=== PATIENT | female | born 1940 | race Caucasian/White ===

== ENCOUNTER → 2018-07-30 | Outpatient (CLI) | payer MEDICARE ==
[~2018-07-30] MED LIST: ALLOPURINOL100 MG PO; ASPIRIN81 MG PO; CYMBALTA; DIOVAN PO; GABAPENTIN100 MG PO; HYDROCODON-ACE1 EA12 PO; KLOR-CON M2020 MEQ PO; LASIX20 MG; LEVOTHYROXINE200 MCG PO; LOSARTAN POTAS100 MG PO; METFORMIN HCL500 MG PO; NAPROXEN500 MG PO; PRAVASTATIN SOD20 MG PO; SYNTHROID PO; TORSEMIDE PO; TYLENOL PO; ULTRAM 50MG50 MG PO; [UNRECOGNIZED DRUG - OTHER]
--- NOTE | 2018-07-30 14:28 | Diagnostic Imaging Report ---
Exam: Right hand radiographs-3 views History: Right hand pain. Comparison: None. Findings: No evidence of acute fracture, malalignment, or soft tissue abnormality. There are moderate degenerative changes at the first carpometacarpal joint and scattered mild interphalangeal and radiocarpal joint degenerative changes. Impression: No acute radiographic abnormality. 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 Signed by: Dr. Destiney Cooper MD on 07/30/2018 2:24 PM
== END ==
LOC: RAD 13:33
PROVIDERS: ATTEND Internal Medicine
DX: M79.641 Pain in right hand (principal)

== ENCOUNTER → 2018-08-26 | Outpatient (CLI) | payer MEDICARE ==
[~2018-08-26] MED LIST changes: +ATORVASTATIN CA20 MG PO; +FUROSEMIDE40 MG PO; +LEVOTHYROXINE50 MCG PO; +TELMISARTAN PO; +TYLENOL WITH C1 EACH PO
--- NOTE | 2018-09-10 16:28 | Polysomnography ---
DATE OF STUDY: 08/26/2018 REFERRING PHYSICIAN: Hugo Fernandez MD INTERPRETING PHYSICIAN: Carlo Segundo MD. INTERPRETATION of HOME SLEEP STUDY IMPRESSION: 1. Moderate obstructive sleep apnea with arterial oxygen desaturations with apnea-hypopnea index (AHI of 25.2). 2. Moderate snoring was noted. 3. 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 RECOMMENDATIONS: 1. Initiate titration for continuous positive airway pressure therapy (CPAP). 2. ENT evaluation to consider surgical options to correct sleep-disordered breathing. 3. Avoid consumption of alcohol or sedatives before bedtime. 4. Avoid caffeine and exercise within 3-4 hours prior to bedtime. 5. Weight reduction to ideal body weight. 6. Advise the patient that excessive daytime sleepiness could pose a danger to the patient and others while driving or operating heavy machinery and to use caution until symptoms are treated and improved. 7. Patient to follow up with physician to discuss results of study. Carlo Segundo MD JKY/MODL /[id number] MTDD
== END ==
LOC: SLEEP 19:46
PROVIDERS: ATTEND Internal Medicine
DX: G47.30 Sleep apnea, unspecified (principal)
CPT/HCPCS: 95806

== ENCOUNTER → 2018-09-17 | Day surgery (SDC) | payer MEDICARE ==
[2018-09-16 14:43] LABS: BASOPHILS % 0.3 % (0.0-1.0); EOSINOPHILS # (AUTO) 0.1 (0.0-0.4); HEMATOCRIT 37.7 % (34.2-44.1); HEMOGLOBIN 12.4 g/dL (12.0-16.0); LYMPHOCYTES # (AUTO) 1.9 (1.0-3.2); LYMPHOCYTES % 32.8 % (18.0-39.1); MEAN CORPUSCULAR HEMOGLOBIN 31.1 pg (28-32); MEAN CORPUSCULAR HGB CONC 32.9 g/dL (31-35); MEAN CORPUSCULAR VOLUME 94.5 fL (81-99); MONOCYTES # (AUTO) 0.5 (0.2-0.8); MONOCYTES % 8.8 % (4.4-11.3); NEUTROPHILS # (AUTO) 3.3 (2.1-6.9); NEUTROPHILS % 55.8 % (38.7-80.0); PLATELET COUNT 193 x10e3/uL (140-360); RED BLOOD COUNT 3.99 x10e6/uL (3.6-5.1)
[~2018-09-17] MED LIST changes: +HYALURONIDASE 16 MG/2 ML SYR IU ONE; +IOPAMIDOL 200 MG/ML 20 ML VIAL IT ONE; +LIDOCAINE HCL 1% 30ML-PF VIAL ONE; +LIDOCAINE HCL 2% LOCAL INJ 5 ML SDV VIAL INJ ONE; +MIDAZOLAM HCL 2 MG/2 ML VIAL ONE; +PROPOFOL IV EMULSION 10 MG/ML 20 ML VIAL ONE; +TRIAMCINOLONE ACET 40 MG/ML VIAL ONE
--- OUTSIDE RECORDS SUMMARY | 2018-09-17 06:56 | XMS REPORT ---
Author Author [facility] Address Unknown Phone Unavailable Care Team Providers Care Metalworker Name Role Phone CONSUELO NEWELL Unavailable Unavailable Problems This patient has no known problems. Allergies, Adverse Reactions, Alerts This patient has no known allergies or adverse reactions. Medications This patient has no known medications. Results Test Description Test Time Test Comments Text Results Atomic Results Result Comments SCR MAMM BILATERAL DEIDRA CAD DIGITAL 2018-09-03 13:09:20 - SCR MAMM BILATERAL DEIDRA CAD DIGITALBILATERAL DIGITAL SCREENING MAMMOGRAM 3D/2D WITH CAD: 09/03/2018CLINICAL: Asymptomatic. Digital breast tomosynthesis was performed in addition to routine CC and MLO views. Current mammographic images were evaluated by either a readfy M-Vu or a GeeYee ImageChecker CAD (computer aided detection system). Comparison is made to exams dated 08/25/2017 mammogram, 2016 mammogram, 11/08/2014 mammogram, and 08/17/2013 mammogram - [facility]. There are scattered fibroglandular tissues in both breasts. No suspicious mass, architectural distortion, malignant type calcification, or lymph node abnormality detected. Breast architecture is stable compared to prior exams.IMPRESSION: NEGATIVEThere is no mammographic evidence of malignancy. Resume annual screening mammography in one year. Mark Hermosillo M.D. ss/penrad:09/03/2018 13:09:20 [employer] Developer: Shabnam COLEMAN, [facility] sent: BIRADS 1-2 Normal Mammogram BI-RADS: 1 Negative HAND 3+ VIEWS RIGHT 2018-07-30 14:22:00 [place] [id number] Patient Name: FRANCESCO GARCIA MR #: [id number] : 1940 Age/Sex: 78/F Req #: [id number] [facility] Physician: Ordered by: CONSUELO NEWELL MD Report #: [id number] Location: [facility] Room/Bed: Procedure: [id number] DX/HAND 3+ VIEWS RIGHT Exam Date: 07/30/18 Exam Time: 1352 REPORT STATUS: Signed Exam: Right hand radiographs-3 views History: Right hand pain. Comparison: None. Findings: No evidence of acute fracture, malalignment, or soft tissue abnormality. There are moderate degenerative changes at the first carpometacarpal joint and scattered mild interphalangeal and radiocarpal joint degenerative changes. Impression: No acute radiographic abnormality. 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 Signed by: Dr. Gale Mcdonald MD on 07/30/2018 2:24 PM Dictated By: GALE MCDONALD MD [id number] Transcribed By: JOSE M on 07/30/18 1427 COPY TO: CONSUELO NEWELL MD
[2018-09-17 08:05] VITALS: BP 121/48
== END | disposition home or self-care (01) ==
LOC: OR 06:49
PROVIDERS: ATTEND Physical Medicine & Rehabilitation Pain Medicine
DX: M17.12 Unilateral primary osteoarthritis, left knee (principal); M54.16 Radiculopathy, lumbar region; M46.96 Unspecified inflammatory spondylopathy, lumbar region; M46.1 Sacroiliitis, not elsewhere classified; M46.94 Unspecified inflammatory spondylopathy, thoracic region; G47.33 Obstructive sleep apnea (adult) (pediatric); I10 Essential (primary) hypertension; E66.9 Obesity, unspecified; M10.9 Gout, unspecified; E03.9 Hypothyroidism, unspecified; E11.9 Type 2 diabetes mellitus without complications; E78.00 Pure hypercholesterolemia, unspecified; Z88.0 Allergy status to penicillin; Z01.810 Encounter for preprocedural cardiovascular examination; Z01.812 Encounter for preprocedural laboratory examination; Z79.84 Long term (current) use of oral hypoglycemic drugs; Z79.82 Long term (current) use of aspirin; Z68.43 Body mass index [BMI] 50.0-59.9, adult
CPT/HCPCS: 20610; 36415 ×2; 82948; 85025; 93005; J2001 ×2; J2250; J2704; J3301; Q9967; 76000

== ENCOUNTER → 2018-12-17 | Day surgery (SDC) | payer MEDICARE ==
[~2018-12-17] MED LIST changes: -HYALURONIDASE 16 MG/2 ML SYR IU ONE; -IOPAMIDOL 200 MG/ML 20 ML VIAL IT ONE; +LEVOTHYROXINE100 MC1 PO; -MIDAZOLAM HCL 2 MG/2 ML VIAL ONE; +TORSEMIDE10 MG PO; +TYLENOL EXTRA500 MG PO
[2018-12-17 07:35] VITALS: BP 131/96
== END | disposition home or self-care (01) ==
LOC: OR 05:59
PROVIDERS: ATTEND Physical Medicine & Rehabilitation Pain Medicine
DX: M17.11 Unilateral primary osteoarthritis, right knee (principal); M25.561 Pain in right knee; Z88.0 Allergy status to penicillin
CPT/HCPCS: 20610; 36415; 77002; 82948; J2001 ×2; J2704; J3301

== ENCOUNTER → 2019-03-11 | Day surgery (SDC) | payer MEDICARE ==
[~2019-03-11] MED LIST changes: +ASPIRIN81 MG; +CRESTOR10 MG PO; +FAMOTIDINE20 MG PO; +LASIX20 MG PO; -LIDOCAINE HCL 2% LOCAL INJ 5 ML SDV VIAL INJ ONE; +LISINOPRIL-HCT1 EAC2 PO; +MICARDIS40 MG PO; +OMEGA 3 1,0001 EACH PO; +POTASSIUM CHLO10 ME1 PO; -TRIAMCINOLONE ACET 40 MG/ML VIAL ONE
[2019-03-11 07:05] VITALS: BP 118/65
== END | disposition home or self-care (01) ==
LOC: OR 05:24
PROVIDERS: ATTEND Physical Medicine & Rehabilitation Pain Medicine
DX: M17.12 Unilateral primary osteoarthritis, left knee (principal); M25.561 Pain in right knee; M47.814 Spondylosis without myelopathy or radiculopathy, thoracic region; I10 Essential (primary) hypertension; E78.00 Pure hypercholesterolemia, unspecified; G47.33 Obstructive sleep apnea (adult) (pediatric); E07.9 Disorder of thyroid, unspecified; Z88.0 Allergy status to penicillin; Z79.82 Long term (current) use of aspirin; Z79.84 Long term (current) use of oral hypoglycemic drugs
CPT/HCPCS: 20610; 77002; J2001; J2704; 77003

== ENCOUNTER → 2019-04-01 | Day surgery (SDC) | payer MEDICARE ==
[~2019-04-01] MED LIST changes: +FENTANYL CITRATE/PF 100MCG/2 ML INJ ONE; +LIDOCAINE HCL 2% LOCAL INJ 5 ML SDV VIAL INJ ONE; +MIDAZOLAM HCL 2 MG/2 ML VIAL ONE
[2019-04-01 07:17] VITALS: BP 128/51
== END | disposition home or self-care (01) ==
LOC: OR 05:28
PROVIDERS: ATTEND Physical Medicine & Rehabilitation Pain Medicine
DX: M17.11 Unilateral primary osteoarthritis, right knee (principal); G47.33 Obstructive sleep apnea (adult) (pediatric); M54.16 Radiculopathy, lumbar region; M46.1 Sacroiliitis, not elsewhere classified; M47.814 Spondylosis without myelopathy or radiculopathy, thoracic region; M10.9 Gout, unspecified; E11.9 Type 2 diabetes mellitus without complications; I10 Essential (primary) hypertension; E03.9 Hypothyroidism, unspecified; E78.00 Pure hypercholesterolemia, unspecified; Z88.0 Allergy status to penicillin; Z79.82 Long term (current) use of aspirin; Z79.84 Long term (current) use of oral hypoglycemic drugs
CPT/HCPCS: 20610; 76000; J2001 ×2; J2250; J2704; J3010

== ENCOUNTER → 2019-04-08 | Day surgery (SDC) | payer MEDICARE ==
[~2019-04-08] MED LIST changes: -FENTANYL CITRATE/PF 100MCG/2 ML INJ ONE; +IOPAMIDOL 200 MG/ML 20 ML VIAL IT ONE; -MIDAZOLAM HCL 2 MG/2 ML VIAL ONE
[2019-04-08 08:00] VITALS: BP 114/58
== END | disposition home or self-care (01) ==
LOC: OR 05:35
PROVIDERS: ATTEND Physical Medicine & Rehabilitation Pain Medicine
DX: M17.12 Unilateral primary osteoarthritis, left knee (principal); M46.94 Unspecified inflammatory spondylopathy, thoracic region; M46.1 Sacroiliitis, not elsewhere classified; G57.00 Lesion of sciatic nerve, unspecified lower limb; G47.33 Obstructive sleep apnea (adult) (pediatric); E78.00 Pure hypercholesterolemia, unspecified; I10 Essential (primary) hypertension; E03.9 Hypothyroidism, unspecified; E66.01 Morbid (severe) obesity due to excess calories; Z88.0 Allergy status to penicillin; Z79.82 Long term (current) use of aspirin; Z79.84 Long term (current) use of oral hypoglycemic drugs
CPT/HCPCS: 20610; 77002; J2001 ×2; J2704; Q9967; 76000

== ENCOUNTER → 2019-04-15 | Day surgery (SDC) | payer MEDICARE ==
[~2019-04-15] MED LIST changes: +HYALURONIDASE 16 MG/2 ML SYR ONE; -LIDOCAINE HCL 2% LOCAL INJ 5 ML SDV VIAL INJ ONE
[2019-04-15 07:05] VITALS: BP 109/47
== END | disposition home or self-care (01) ==
LOC: OR 05:32
PROVIDERS: ATTEND Physical Medicine & Rehabilitation Pain Medicine
DX: M17.11 Unilateral primary osteoarthritis, right knee (principal); M54.16 Radiculopathy, lumbar region; M46.1 Sacroiliitis, not elsewhere classified; M46.94 Unspecified inflammatory spondylopathy, thoracic region; G47.33 Obstructive sleep apnea (adult) (pediatric); I10 Essential (primary) hypertension; E03.9 Hypothyroidism, unspecified; E78.00 Pure hypercholesterolemia, unspecified; Z88.0 Allergy status to penicillin; Z79.82 Long term (current) use of aspirin; Z79.84 Long term (current) use of oral hypoglycemic drugs
CPT/HCPCS: 20610; 36415; 77002; 82948; J2001; J2704; J7325; Q9967; 76000

== ENCOUNTER → 2019-07-08 | Outpatient (CLI) | payer MEDICARE ==
[~2019-07-08] MED LIST changes: -HYALURONIDASE 16 MG/2 ML SYR ONE; -IOPAMIDOL 200 MG/ML 20 ML VIAL IT ONE; -LIDOCAINE HCL 1% 30ML-PF VIAL ONE; -PROPOFOL IV EMULSION 10 MG/ML 20 ML VIAL ONE
== END ==
LOC: CARD 09:32
PROVIDERS: ATTEND Internal Medicine
DX: I50.9 Heart failure, unspecified (principal); I73.9 Peripheral vascular disease, unspecified
CPT/HCPCS: 93306; 93925